=== PATIENT | male | born 1960 | race Caucasian/White ===

== ENCOUNTER → 2016-11-18 | Outpatient (CLI) | payer BC ==
--- NOTE | 2016-11-18 08:50 | MR ---
EXAMINATION TYPE: MR brain and iac wo/w con DATE OF EXAM: 11/18/2016 8:37 AM COMPARISON: 10/06/2014 HISTORY: Hearing loss,Postop acoustic neuroma check. TECHNIQUE: Multiplanar and multispin-echo imaging of the brain was performed both before and after the administr ation of contrast. High-resolution images are obtained of the internal auditory canals performed uti lizing 18 mL intravenous MultiHance contrast. The ventricles, basal cisterns and sulci overlying the cerebral convexities are within normal limits. There is no evidence for midline shift or mass effect. Acute intracranial hemorrhage or extra-axial collection is not evident. There is mild periventricular white matter ischemic demyelination and scattered remote deep white mat ter insults. Changes of left-sided mastoidectomy with a temporal bone packing with fat. Again noted is minimal enh ancement along the intracanicular portion of the internal auditory canal on the left which is stable and believed to BE postoperative in nature. No evidence for residual or recurrent acoustic schwannoma . High-resolution imaging of the internal auditory canals fails demonstrate evidence for an enhancing a coustic schwannoma or cerebellopontine cistern angle mass. Following contrast administration, there is no evidence for enhancing mass. Changes of chronic maxillary and ethmoidal sinusitis. Right-sided mastoid air cells are well-aerated. IMPRESSION: 1. Stable postoperative changes left temporal bone. Persistent mild enhancement within the intracanic ular portion of the left Internal auditory canal felt to be postoperative in nature. No definite enha ncing acoustic schwannoma. 2. 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 3. Chronic sinusitis.
== END | disposition home or self-care (01) ==
LOC: RADMRIMAIN 07:38
PROVIDERS: ATTEND Otolaryngology
DX: R93.0 Abnormal findings on diagnostic imaging of skull and head, not elsewhere classified (principal); D33.3 Benign neoplasm of cranial nerves; Z86.73 Personal history of transient ischemic attack (TIA), and cerebral infarction without residual deficits; Z98.890 Other specified postprocedural states
CPT/HCPCS: 70553; A9577

== ENCOUNTER → 2017-10-15 | Outpatient (CLI) | payer OTHER ==
--- NOTE | 2017-10-15 14:28 | XR ---
EXAMINATION TYPE: XR chest 2V DATE OF EXAM: 10/15/2017 COMPARISON: NONE HISTORY: Cough and congestion, acute upper respiratory infection, J06.9 TECHNIQUE: Frontal and lateral views of the chest are obtained. FINDINGS: There is no focal air space opacity, pleural effusion, or pneumothorax seen. The cardiac silhouette size is within normal limits. There is a spinal curvature present. The osseous structures are intact. IMPRESSION: No acute cardiopulmonary process.
== END | disposition home or self-care (01) ==
LOC: RADXRMAIN 12:14
PROVIDERS: ATTEND Internal Medicine
DX: J06.9 Acute upper respiratory infection, unspecified (principal)
CPT/HCPCS: 71046

== ENCOUNTER → 2017-10-26 | Outpatient (CLI) | payer OTHER ==
--- NOTE | 2017-10-26 09:16 | XR ---
EXAM TYPE: LUMBAR SPINE X RAY SERIES COMPARISON: NONE HISTORY: Low back pain TECHNIQUE: 4 views are submitted. FINDINGS: Alignment is anatomic. The pedicles are intact. The transverse processes are intact. There is no s pondylolysis or spondylolisthesis. Severe degenerative disc disease L5-S1 with posterior spondylosis and probable foraminal encroachment. IMPRESSION: 1. Severe degenerative disc disease L5-S1 consider MRI follow-up.
== END | disposition home or self-care (01) ==
LOC: RADXRMAIN 08:44
PROVIDERS: ATTEND Internal Medicine
DX: M51.37 Other intervertebral disc degeneration, lumbosacral region (principal)
CPT/HCPCS: 72100

== ENCOUNTER → 2017-11-13 | Outpatient (CLI) | payer OTHER ==
--- NOTE | 2017-11-13 15:22 | MR ---
EXAMINATION TYPE: MR lumbar spine wo con DATE OF EXAM: 11/13/2017 COMPARISON: Lumbar spine x-ray October 26, 2017 HISTORY: Spondylosis and Radiculopathy per order. Pain into right lower extremity for 3 weeks per pat ient. TECHNIQUE: Multiplanar, multisequence imaging of the lumbar spine is performed without IV contrast. FINDINGS: Sagittal images of the lumbar spine show vertebral body heights and alignment to appear sat isfactory. Multilevel disc desiccation is present. There is moderate disc space narrowing L5-S1 level redemonstrated. Small posterior disc herniation L4-L5 and L5-S1 levels are seen on sagittal images. Increased signal posteriorly consistent with annular tear is noted L5-S1 level. There is heterogeneou s increased T1 and T2 signal consistent with Modic type II degenerative change at the L5-S1 level. Th e conus medullaris is normal in position and signal ending at superior L1 level. Tarlov cysts in the upper sacrum are noted sagittal image 7. Axial images show the T12-L1 and L1-L2 levels to appear within normal limits. Axial images at L2-L3 level show mild broad disc bulge with left foraminal disc protrusion component minimally effacing anterior thecal sac. There is mild left-sided anterior inferior neural foraminal n arrowing seen. Right-sided neural foramen is patent. Axial images at L3-L4 level are felt within normal limits. Axial images at L4-L5 level show broad-based right paracentral disc protrusion effacing anterolateral thecal sac, bilateral neural foramina are patent. Axial images at L5-S1 level shows central disc protrusion minimally effacing anterior thecal sac, fiona ateral neural foramina are patent. There is heterogeneity of bone marrow signal intensity felt to reflect red marrow reconversion extend ing into the visualized upper sacrum. There are some simple appearing cysts seen bilaterally in both kidneys with partial visualization of 4.3 cm exophytic cyst anteriorly mid pole level left kidney axi al image 38 noted. IMPRESSION: Straightening of lumbar spine with multilevel degenerative changes in lumbar spine noted as detailed above.
== END | disposition home or self-care (01) ==
LOC: RADMRIMAIN 14:37
PROVIDERS: ATTEND Physical Medicine & Rehabilitation
DX: M47.26 Other spondylosis with radiculopathy, lumbar region (principal)
CPT/HCPCS: 72148

== ENCOUNTER → 2020-07-06 | Outpatient (CLI) | payer OTHER ==
--- NOTE | 2020-07-06 07:59 | MR ---
EXAMINATION TYPE: MR brain and iac wo/w con DATE OF EXAM: 07/06/2020 COMPARISON: Prior MRI brain November 18, 2016. CT brain September 02, 2014 HISTORY: Acoustic Neuroma Post OP x 6 years TECHNIQUE: Multiplanar, multisequence images of the brain and brainstem along with internal auditory canals are all performed without and with IV contrast, utilizing 9 mL intravenous Gadavist . FINDINGS: Diffusion weighted images demonstrate no evidence of a recent infarct or other diffusion ab normality. There is no worrisome new extra-axial fluid collection. Diffuse ventricular and sulcal pr ominence. Scattered foci of T2 hyperintensity seen throughout the white matter bilaterally with inter anel progression from 2017 study. I estimate roughly 15-20 scattered lesions on current study approxim ately doubled from prior. Midline structures demonstrate normal morphology. The craniocervical junction appears within normal limits. Post contrast images demonstrate no abnormal enhancement. The dural venous sinuses appear pa tent. Persistent mild to moderate mucosal thickening involving ethmoid sinuses bilaterally left great er than right and mild mucosal thickening involving bilateral frontal sinuses otherwise paranasal sin uses are clear. Globes are intact bilaterally. Postsurgical changes left temporal region redemonstrated. Stable T2 hyperintense packing material. Th e vestibulocochlear complexes are symmetric and felt within normal limits. There is no suspicious new enhancing cerebellopontine angle mass identified bilaterally. Asymmetric material of T1 hyperintensi ty redemonstrated at the level of petrous apex posterior to the vestibulocochlear complex and extendi ng superiorly and inferiorly. No significant change from prior study. IMPRESSION: 1. No suspicious new fluid collection or enhancing mass. Stable post surgical changes. 2. Persistent mild diffuse cerebral atrophy and now mild to moderate chronic small vessel ischemic ch anges. Some interval progression in the latter from 2017 study noted. 3. Stable mild chronic paranasal sinus disease.
== END | disposition home or self-care (01) ==
LOC: RADMRIMAIN 06:47
PROVIDERS: ATTEND Otolaryngology
DX: I67.82 Cerebral ischemia (principal); G31.9 Degenerative disease of nervous system, unspecified; D33.3 Benign neoplasm of cranial nerves
CPT/HCPCS: 70553; A9585

== ENCOUNTER → 2021-03-18 | Outpatient (CLI) | payer BC ==
--- NOTE | 2021-03-18 13:24 | XR ---
EXAMINATION TYPE: XR chest 2V DATE OF EXAM: 03/18/2021 COMPARISON: Chest x-ray 10/15/2017 HISTORY: R07.89 atypical chest pain TECHNIQUE: Frontal and lateral views of the chest are obtained. FINDINGS: There is no focal air space opacity, pleural effusion, or pneumothorax seen. The cardiac silhouette size is within normal limits. The osseous structures are intact. IMPRESSION: No acute cardiopulmonary process.
== END | disposition home or self-care (01) ==
LOC: RADXRMAIN 12:38
PROVIDERS: ATTEND Internal Medicine
DX: R07.89 Other chest pain (principal)
CPT/HCPCS: 71046

== ENCOUNTER → 2021-04-10 | Outpatient (CLI) | payer BC ==
--- NOTE | 2021-04-10 12:17 | ECHOS ---
STRESS ECHOCARDIOGRAM DATE OF SERVICE: April 10, 2021. PERFORMING PHYSICIAN: Chaz Durant MD. PROCEDURE PERFORMED: Stress echocardiogram. INDICATION: Chest pain. BASELINE HEART RATE: 73 BASELINE BLOOD PRESSURE: 124/95 MAXIMUM HEART RATE: 158 MAXIMUM BLOOD PRESSURE: 211/50 85% MPHR: 136 100% MPHR: 160 METS: 11.5 MAXIMUM STAGE REACHED: 4 TOTAL EXERCISE TIME: 10:00 STRESS DATA: Heart rate is 73, pressure is 124/95 mmHg. Baseline EKG showed sinus mechanism. The patient exercised on the treadmill according to Fadi protocol for a total of 10 minutes and achieved 11.5 METs. Max heart rate was 158 which is about 99% of maximum predicted heart rate and maximum blood pressure was 203/66 mmHg. Clinically, the patient did not have any symptoms. The EKG did not show any significant ST or T-wave abnormalities concerning for ischemia. ECHOCARDIOGRAM IMAGES: On echocardiogram images from parasternal long axis view, parasternal short axis view, apical long axis, and apical short axis view were obtained as the baseline images, at the peak of the heart rate as well as on recovery. The echocardiogram images showed good augmentation in the left ventricular systolic function without any evidence of wall motion abnormalities concerning for ischemia. CONCLUSION: 1. Excellent exercise tolerance. 2. Normal EKG in response to exercise. 3. Normal echocardiogram in response to exercise. 4. Essentially normal stress echocardiogram. MMODL / IJN: [id number] /
== END | disposition home or self-care (01) ==
LOC: RADNMMAIN 08:59
PROVIDERS: ATTEND Internal Medicine
DX: R07.89 Other chest pain (principal)
CPT/HCPCS: 93351

== ENCOUNTER 2022-03-06 08:08 | Inpatient (IN) | payer BC ==
[2022-03-06] MEDS ORDERED: HEPARIN SOD,PORK IN 0.45% NACL 25,000 UNIT in 0.45% NACL 1 250ML.BAG IV SCH (08:15)
[2022-03-06] MEDS ORDERED: SODIUM CHLORIDE 0.9% 1,000 ML IV STA (08:15)
[2022-03-06] MEDS ORDERED: HEPARIN SODIUM 1,000 UN/ML (10ML VL) IV ONE ×2 (08:15→08:41)
--- NOTE | 2022-03-06 08:20 | ED ---
Chest Pain HPI - General Chief Complaint: Chest Pain Stated Complaint: Stemi Source: patient, EMS Mode of arrival: EMS - History of Present Illness Initial Comments: 61-year-old male with past medical history of anxiety and high cholesterol presents to the emergency department with chest pain. Chest pain started yesterday however resolved. Today the pain came back and was described as a pressure sensation, substernal without radiation. Associated nausea with diaphoresis. EMS arrived on scene and found the patient to have ST segment elevation. He has no previous cardiac history. Denies ripping or tearing sensation to his back. No recent fevers, chills or cough. Patient was given 324 mg chewable aspirin and 3 nitros en route to the hospital. No other alleviating, precipitating or modifying factors - Related Data Home Medications Medication Instructions Recorded Confirmed FLUoxetine HCL [PROzac] 20 mg PO DAILY 09/02/14 09/02/14 Previous Rx's Medication Instructions Recorded Ondansetron Odt [Zofran Odt] 4 mg PO Q8HR PRN #10 tab 09/02/14 Potassium Chloride ER [K-Dur 20] 20 meq PO DAILY #20 tab 09/02/14 Allergies Allergy/AdvReac Type Severity Reaction Status Date / Time No Known Allergies Allergy Verified 06/08/21 14:09 Review of Systems ROS Statement: Those systems with pertinent positive or pertinent negative responses have been documented in the HPI. ROS Other: All systems not noted in ROS Statement are negative. EKG Findings - EKG Comments: EKG Findings:: EKG demonstrates sinus rhythm with a rate of 69. ST segment elevation in V1 through V6. Reciprocal depression in the inferior leads Past Medical History Additional Past Medical History / Comment(s): benign brain tumor History of Any Multi-Drug Resistant Organisms: None Reported Additional Past Surgical History / Comment(s): brain tumor removal Past Psychological History: Anxiety, Depression Smoking Status: Never smoker Past Alcohol Use History: Occasional Past Drug Use History: None Reported, Marijuana Course Vital Signs 03/06/22 08:10 Pulse Rate 69 Respiratory 18 Rate Blood Pressure 107/87 O2 Sat by Pulse 95 Oximetry Procedures - [place] Protocol (Time Out) Patient Identification (2 identifiers required): Chart, Verbal, Arm Band, Name, Birthdate Patient/Legal [employer] has Confirmed: Identity, Procedure Site Marked: Not Applicable Chest Pain MDM - MDM Upon arrival patient was placed into trauma 1. History and physical exam was performed. 12-lead EKG was obtained which continues to demonstrate ST segment elevation. Patient given a heparin bolus. Labs are obtained and patient is taken to [facility] 1 for catheterization. Spoke with Dr. Durant as patient was wheeled upstairs. Disposition Clinical Impression: Chest pain, ST elevation myocardial infarction (STEMI) Disposition: ADMITTED IP TO THIS HOSP Condition: Serious Is patient prescribed a controlled substance at d/c from ED?: No Referrals: Derick Remy MD [Primary Care Provider] - 1-2 days Time of Disposition: 08:24 Decision to Admit Reason: Admit from EC Decision Date: 03/06/22 Decision Time: 08:24
[2022-03-06] MEDS ORDERED: NALOXONE 0.4 MG/ML 1 ML VIAL IV PRN (08:24)
[2022-03-06 08:30] LABS: Basophils # (A) 0.1 k/uL (0-0.2); Basophils % (A) 1 %; Eosinophils # (A) 0.2 k/uL (0-0.7); Eosinophils % (A) 4 %; HGB 14.2 gm/dL (13.0-17.5); Lymphocytes # (A) 2.8 k/uL (1.0-4.8); Lymphocytes % (A) 45 %; MCH 30.4 pg (25.0-35.0); MCHC 33.1 g/dL (31.0-37.0); Mean Platelet Volume 7.5; Monocytes # (A) 0.4 k/uL (0-1.0); Monocytes % (A) 7 %; Neutrophils # (A) 2.4 k/uL (1.3-7.7); Neutrophils % (A) 39 %; Platelet Count 194 k/uL (150-450); RBC 4.67 m/uL (4.30-5.90); WBC 6.3 k/uL (3.8-10.6)
[2022-03-06] MEDS ORDERED: HEPARIN SODIUM 1,000 UN/ML (10ML VL) ONE (08:34)
[2022-03-06] MEDS ORDERED: LIDOCAINE 1% INJ 10MG/ML (30 ML VIAL-PF) SQ ONE (08:35)
[2022-03-06] MEDS ORDERED: MIDAZOLAM 2 MG/2 ML VIAL IV ONE (08:37)
[2022-03-06] MEDS ORDERED: VERAPAMIL SYRINGE (5 MG/10 ML) INTRAARTER ONE (08:37)
[2022-03-06 08:40] LABS: ALT 32 U/L (4-49); AST 47 U/L (17-59); African American GFR (CKD) >90 (>60 ml/min/1.73 sqM); Albumin 4.4 g/dL (3.5-5.0); Alkaline Phosphatase 69 U/L (38-126); Anion Gap 12 mmol/L; Blood Urea Nitrogen 13 mg/dL (9-20); Carbon Dioxide 19 mmol/L (22-30); Chloride 106 mmol/L (98-107); Glucose 167 mg/dL (74-99); Non-African American GFR(CKD) 90 (>60 ml/min/1.73 sqM); Potassium 4.3 mmol/L (3.5-5.1); Sodium 137 mmol/L (137-145); Total Bilirubin 0.5 mg/dL (0.2-1.3); Total Protein 6.9 g/dL (6.3-8.2)
[2022-03-06] MEDS ORDERED: PRASUGREL 10 MG TAB ONE (08:48)
[2022-03-06 08:49] LABS: Prothrombin Time 10.6 sec (9.0-12.0)
[2022-03-06] MEDS ORDERED: PRASUGREL 10 MG TAB PO ONE (08:50)
[2022-03-06] MEDS ORDERED: IOPAMIDOL-370 125ML BTL INJ ONE (09:03)
[2022-03-06] MEDS ORDERED: MAG HYDROX/AL HYDROX/SIMETH 30 ML CUP PO PRN (09:13)
[2022-03-06] MEDS ORDERED: ZOLPIDEM 5 MG TAB PO PRN (09:13)
[2022-03-06] MEDS ORDERED: RX INFO: IV CONTRAST WAS GIVEN 1 EACH MISC MISCELLANE PRN (09:13)
[2022-03-06] MEDS ORDERED: ATROPINE SULFATE 0.1 MG/ML 10ML SYRINGE IV PRN (09:13)
[2022-03-06] MEDS ORDERED: NITROGLYCERIN SL TABS 0.4 MG TAB SUBLINGUAL PRN (09:13)
[2022-03-06] MEDS ORDERED: SODIUM CHLORIDE 0.9% 1,000 ML in EMPTY BAG 1 BAG IV SCH (09:15)
--- NOTE | 2022-03-06 09:19 | P.CRDCN ---
History of Present Illness Consult date: 03/06/22 Chief complaint: Chest pain History of present illness: This is a 61-year-old gentleman with a past medical history significant for dyslipidemia was brought to the hospital by ambulance with a chest discomfort and EKG concerning for acute anterior ST patient myocardial infarction. He was doing shopping this morning when he started experiencing discomfort in the middle of the chest as a pressure on the chest. Ambulance was called and EKG wa s performed and showed an acute anterior ST patient myocardial infarction. 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 The patient is chest pain-free with significant improvement in the EKG changes by the end of the procedure. He does have history of dyslipidemia. No hypertension. No other risk factor for CAD like diabetes. Past Medical History Additional Past Medical History / Comment(s): benign brain tumor History of Any Multi-Drug Resistant Organisms: None Reported Additional Past Surgical History / Comment(s): brain tumor removal Past Psychological History: Anxiety, Depression Smoking Status: Never smoker Past Alcohol Use History: Occasional Past Drug Use History: None Reported, Marijuana Medications and Allergies Home Medications Medication Instructions Recorded Confirmed Type FLUoxetine HCL [PROzac] 20 mg PO DAILY 09/02/14 09/02/14 History Ondansetron Odt [Zofran Odt] 4 mg PO Q8HR PRN #10 tab 09/02/14 Rx Potassium Chloride ER [K-Dur 20] 20 meq PO DAILY #20 tab 09/02/14 Rx Allergies Allergy/AdvReac Type Severity Reaction Status Date / Time No Known Allergies Allergy Verified 06/08/21 14:09 Physical Exam Vitals: Vital Signs Pulse Resp BP Pulse Ox 03/06/22 08:58 68 18 124/81 96 03/06/22 08:10 69 18 107/87 95 Intake and Output 03/05/22 03/06/22 03/06/22 22:59 06:59 14:59 Other: Weight 84.822 kg - Constitutional General appearance: no acute distress - Respiratory Respiratory: bilateral: CTA - Cardiovascular Rhythm: regular Heart sounds: normal: S1, S2 Abnormal Heart Sounds: systolic murmur Results 03/06/22 08:00 03/06/22 08:00 Cardiac Enzymes 03/06/22 03/06/22 Range/Units 08:00 08:00 AST 47 (17-59) U/L Troponin I 0.341 H* (0.000-0.034) ng/mL Coagulation 03/06/22 Range/Units 08:00 PT 10.6 (9.0-12.0) sec APTT 21.0 L (22.0-30.0) sec CBC 03/06/22 Range/Units 08:00 WBC 6.3 (3.8-10.6) k/uL RBC 4.67 (4.30-5.90) m/uL Hgb 14.2 (13.0-17.5) gm/dL Hct 43.0 (39.0-53.0) % Plt Count 194 (150-450) k/uL Comprehensive Metabolic Panel 03/06/22 Range/Units 08:00 Sodium 137 (137-145) mmol/L Potassium 4.3 (3.5-5.1) mmol/L Chloride 106 (98-107) mmol/L Carbon Dioxide 19 L (22-30) mmol/L BUN 13 (9-20) mg/dL Creatinine 0.92 (0.66-1.25) mg/dL Glucose 167 H (74-99) mg/dL Calcium 9.0 (8.4-10.2) mg/dL AST 47 (17-59) U/L ALT 32 (4-49) U/L Alkaline Phosphatase 69 (38-126) U/L Total Protein 6.9 (6.3-8.2) g/dL Albumin 4.4 (3.5-5.0) g/dL Current Medications Generic Name Dose Route Start Last Admin Trade Name Freq PRN Reason Stop Dose Admin Al Hydroxide/Mg Hydroxide 30 ml 03/06/22 09:13 Mag Hydrox/Al Hydrox/Simeth 30 Ml Cup PO Q4HR PRN Heartburn Aspirin 81 mg 03/07/22 09:00 Aspirin 81 Mg PO DAILY TYRELL Atorvastatin Calcium 80 mg 03/06/22 21:00 Atorvastatin 80 Mg Tab PO HS TYRELL Atropine Sulfate 0.5 mg 03/06/22 09:13 Atropine Sulfate 0.1 Mg/Ml 10ml Syringe IV ONCE PRN Symptomatic Bradycardia Heparin Sodium/Sodium Chloride 250 mls @ 10.001 mls/hr 03/06/22 08:15 25,000 unit/ Sodium Chloride IV .Q24H [facility] Protocol 11.79 UNITS/KG/HR Sodium Chloride 1,000 ml/ IV 1,000 mls @ 75 mls/hr 03/06/22 09:15 Solution IV 03/06/22 14:16 .[id number] [facility] Miscellaneous Information 1 each 03/06/22 09:13 Rx Info: Iv Contrast Was Given 1 Each Mis MISCELLANE 03/08/22 09:13 DAILY PRN Per Protocol Naloxone HCl 0.2 mg 03/06/22 08:24 Naloxone 0.4 Mg/Ml 1 Ml Vial IV Q2M PRN Opioid Reversal Nitroglycerin 0.4 mg 03/06/22 09:13 Nitroglycerin Sl Tabs 0.4 Mg Tab SUBLINGUAL Q5M PRN Chest Pain Prasugrel 10 mg 03/07/22 09:00 Prasugrel 10 Mg Tab PO DAILY [facility] Protocol Zolpidem Tartrate 5 mg 03/06/22 09:13 Zolpidem 5 Mg Tab PO HS PRN Insomnia Intake and Output 03/05/22 03/06/22 03/06/22 22:59 06:59 14:59 Other: Weight 84.822 kg Patient Weight 03/07/22 06:59 Weight 84.822 kg 03/06/22 08:00 03/06/22 08:00 Assessment and Plan Assessment: Assessment #[address] patient myocardial infarction #2 dyslipidemia Plan #1 the patient is status post a stenting of the LAD #2 obtain an echo to evaluate the LV function #3 dual antiplatelet therapy #4 follow-up with the patient
--- NOTE | 2022-03-06 09:23 | P.PCN ---
Date of Procedure: 03/06/22 Operative Findings: CARDIAC CATHETERIZATION AND PERCUTANEOUS CORONARY INTERVENTION PERFORMING PHYSICIAN: Chaz Durant MD, [facility] PROCEDURE PERFORMED: 1. Selective right and left coronary angiogram 2. Left heart catheterization 3. Successful stenting of proximal LAD using 4.0 x 23 and 4.0 x 12 Xience KATHRINE which with an excellent angiographic results 4. Aspiration thrombectomy from the left anterior descending artery INDICATION: Acute anterior ST patient myocardial infarction COMPLICATION: None APPROACH: Right radial approach LEVEL OF SEDATION: Moderate with the sedation time off 20 minutes PROCEDURE DESCRIPTION: After obtaining informed consent the patient was brought to the cardiac vp lab. The right radial artery was cannulated using micropuncture technique, the micropuncture wire passed easily then I placed a 6-[place] sheath. Subsequently given 2 mg of verapamil IA. Subsequently did selective right and left coronary angiogram using JR4 and JL 3.5 catheters. After that I did intervene on the LAD. At that did left heart catheterization. The procedure was completed without any complications SELECTIVE CORONARY ANGIOGRAM: The right coronary artery: Large caliber vessel and a dominant vessel. The RCA has mild disease in the proximal portion. Distally bifurcates into PDA and PLV branches both appeared to be angiographically normal. Left main: Is angiographically normal. Bifurcates into LCx and LAD The left circumflex: Is a large caliber vessel. Its and on dominant vessel. The LCx is angiographically normal. Gives rises into multiple OM branches appears to be angiographically normal the first OM branch is a large caliber vessel work as a ramus intermedius. The left anterior descending artery: Is occluded in the proximal portion. The LAD is a large caliber vessel. HEMODYNAMICS: The LVEDP was 15 mmHg was no significant gradient across aortic valve PCI OF THE LAD: Anticoagulation was initiated using heparin with continuous ECG monitoring throughout the procedure date subsequently admitted engage the left main using a JL 3.5 guiding catheter B that is where the LAD using a run-through wire. This patient from [place] from the LAD was performed using an export catheter. There was a small white clot noted. After that I did direct stenting of the LAD using 4.0 x 23 mm stent where the stent was positioned under fluoroscopy guidance and deployed under 14 theresa for 20 seconds. The following angiogram showed a haziness distal to the stented segment. Because of that I decided to cover that the stent so I deployed a 40 by 12 mm another stent where the second stent was overlapped with persistent about 2 mm. The second stent was deployed under 12 theresa for 20 seconds. The area of overlap was dilated using the stent balloon which was inflated under 14 theresa for 20 seconds. The final angiogram showed good angiographic results and the procedure was completed without any complications CONCLUSION: Acute anterior ST elevation myocardial infarction Acute total occlusion of the LAD. I did perform successful stenting of the LAD with a good angiographic results Normal left-sided filling pressure POSTPROCEDURE MANAGEMENT: #1 dual antiplatelet therapy using aspirin and Effient for 12 month #2 aggressive cholesterol control #3 follow-up with the patient
[2022-03-06 09:40] LABS: Glucose,Whole Blood 145 mg/dL (70-110)
[2022-03-06] MEDS ORDERED: diazePAM 2 MG TAB PO PRN (12:52)
--- NOTE | 2022-03-06 13:45 | P.HPIM ---
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 He was noted to have ST segment elevations on EKG. 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 He was started on ASA, effient, and lipitor. He has been admitted to the ICU. Patient seen and examined at bedside with present. Chest pain yesterday with nausea and pain in arms when sitting and watching TV lasted about 45 minutes. This morning work up at 6 am about 6:45 Chest pressure in the center, elbow, wrist, and back of neck hurting, nausea with dry heaves, + SOB, + diaphoresis. Yesterday weed wacked harder than normal. No hx of heart disease. Hx of syncope due to low blood pressure. Dad- [place] at age of 57. Brother- heart attack under the age of 60 Pertinent positives and negatives as discussed in HPI, a complete review of systems was performed and all other systems are negative. Vital signs reviewed General: nontoxic, no distress, appears at stated age Derm: warm, dry Head: atraumatic, normocephalic, symmetric, cochlear implant right Eyes: EOMI, no lid lag, anicteric sclera, pupils equal round reactive to light ENT: Nose and ears atraumatic, no thrush, no pharyngeal erythema Neck: No thyromegaly, no cervical lymphadenopathy, trachea midline, supple Mouth: no lip lesion, mucus membranes moist Cardiovascular: S1S2 reg, no murmur, positive posterior tibial pulse bilateral, no edema, capillary refill less than 2 seconds Lungs: clear to auscultation bilateral, no rhonchi, no rales, no wheeze, no accessory muscle use Abdominal: soft, nontender to palpation, no guarding, no appreciable organomegaly, normal bowel sounds Ext: no gross muscle atrophy, muscle strength muscle strength 5 out of 5 in all 4 extremities, no contractures Neuro: CN II-XII grossly intact, light touch intact all 4 extremities, finger to nose within normal limits, Psych: Alert, oriented, appropriate affect Assessment/Plan: Acute anterior STEMI Hx hypotension - ASA, Effient, statin - Await echo - Cardio recs - tele - check lipid profile and A1C Hyperlipidemia - statin, lipid profile Hearing loss The patient is admitted with an anticipated greater than 2 midnight stay for evaluation of STEMI. Surrogate decision-maker: CODE STATUS:full DVT prophylaxis: SCDs Discussed with: patient, nursing Anticipated discharge date: in 2-[address]: home A total of 35 minutes was spent on the care of this complex patient more than 50% of the time was spent in counseling and care coordination. Past Medical History Past Medical History: Hyperlipidemia Additional Past Medical History / Comment(s): Acustic neuroma, sudden hearing loss, Raynauds, Anxiety/depression History of Any Multi-Drug Resistant Organisms: None Reported Additional Past Surgical History / Comment(s): brain tumor removal, Cocholar imptant Smoking Status: Never smoker Past Alcohol Use History: None Reported Past Drug Use History: Marijuana - Past Family History Brother(s) Family Medical History: Myocardial Infarction ([place]) Father Family Medical History: Myocardial Infarction ([place]) Medications and Allergies Home Medications Medication Instructions Recorded Confirmed Type Escitalopram [Lexapro] 10 mg PO DAILY 03/06/22 03/06/22 History diazePAM [Valium] 2 mg PO Q8H PRN 03/06/22 03/06/22 History Allergies Allergy/AdvReac Type Severity Reaction Status Date / Time No Known Allergies Allergy Verified 03/06/22 10:55 Physical Exam Osteopathic Statement: *. No significant issues noted on an osteopathic structural exam other than those noted in the History and Physical/Consult. Vitals: Vital Signs Temp Pulse Resp BP Pulse Ox 03/06/22 12:30 74 10 L 141/78 100 03/06/22 12:00 97.8 F 61 11 L 116/79 98 03/06/22 11:30 54 L 102/68 99 03/06/22 11:00 55 L 13 104/73 100 03/06/22 10:45 53 L 10 L 103/66 99 03/06/22 10:30 60 10 L 103/65 98 03/06/22 10:15 57 L 12 102/65 100 03/06/22 10:00 51 L 11 L 99/70 97 03/06/22 09:45 52 L 12 99/70 98 03/06/22 09:40 97.8 F 51 L 10 L 99/70 99 03/06/22 09:37 50 L 10 L 06/23/22 08:58 68 18 124/81 96 03/06/22 08:10 69 18 107/87 95 Intake and Output 03/05/22 03/06/22 03/06/22 22:59 06:59 14:59 Intake Total 420 Balance 420 Intake: IV 300 Sodium Chloride 0.9% 1, 300 000 ml In Empty Bag 1 bag @ 75 mls/hr IV .[id number] Rx#:[id number] Oral 120 Other: Weight 84.822 kg Results CBC & Chem 7: 03/06/22 08:00 03/06/22 08:00 Labs: Abnormal Lab Results - Last 24 Hours (Table) 03/06/22 03/06/22 03/06/22 Range/Units 08:00 08:00 08:00 APTT 21.0 L (22.0-30.0) sec Carbon Dioxide 19 L (22-30) mmol/L Glucose 167 H (74-99) mg/dL POC Glucose (mg/dL) (70-110) mg/dL Troponin I 0.341 H* (0.000-0.034) ng/mL 03/06/22 Range/Units 09:39 APTT (22.0-30.0) sec Carbon Dioxide (22-30) mmol/L Glucose (74-99) mg/dL POC Glucose (mg/dL) 145 H (70-110) mg/dL Troponin I (0.000-0.034) ng/mL Thrombosis Risk Factor Assmnt - Choose All That Apply Each Factor Represents 1 point: Acute [place], Medical pt on bed rest Each Risk Factor Represents 2 Points: Age 61-74 years, Central venous access, Patient confined to bed Other congenital or acquired thrombophilia - If yes, enter type in comment: No Thrombosis Risk Factor Assessment Total Risk Factor Score: 8 Thrombosis Risk Factor Assessment Level: High Risk
[2022-03-06] MEDS: ESCITALOPRAM 10 MG TAB PO SCH (14:54)
[2022-03-06] MEDS: ATORVASTATIN 80 MG TAB PO SCH (19:48)
[2022-03-07] MEDS: METOPROLOL TARTRATE 25 MG TAB PO SCH ×3 (00:24→20:24)
[2022-03-07 06:30] LABS: African American GFR (CKD) >90 (>60 ml/min/1.73 sqM); Anion Gap 6 mmol/L; Blood Urea Nitrogen 13 mg/dL (9-20); Calcium 8.6 mg/dL (8.4-10.2); Carbon Dioxide 27 mmol/L (22-30); Chloride 106 mmol/L (98-107); Glucose 108 mg/dL (74-99); Non-African American GFR(CKD) 89 (>60 ml/min/1.73 sqM); Potassium 4.5 mmol/L (3.5-5.1); Sodium 139 mmol/L (137-145)
--- NOTE | 2022-03-07 08:18 | P.PN ---
Subjective Progress Note Date: 03/07/22 Principal diagnosis: Acute coronary syndrome This is a 61-year-old gentleman who was brought to the hospital with a chest discomfort and EKG concerning for acute anterior ST patient myocardial infarction. He underwent an emergent heart catheterization and was found to have occluded LAD. He underwent successful stenting of the LAD with an excellent angiographic results. The patient was seen this morning. He is doing well clinically. He is stable hemodynamically as well as mid he has been maintaining normal sinus mechanism. The echo is not back yet. He is on dual antiplatelet therapy as well as high intensity statin. From a cardiovascular standpoint of view, the patient can be transferred to the third floor for possible discharge in the next 24 hours Objective - Vital Signs Vital signs: Vital Signs Temp 98.1 F 03/07/22 03:59 Pulse 51 L 03/07/22 07:00 Resp 15 03/07/22 07:00 BP 121/85 03/07/22 07:00 Pulse Ox 96 03/07/22 07:00 FiO2 Intake & Output 03/06/22 03/07/22 03/07/22 18:59 06:59 18:59 Intake Total 1120 525 Output Total 0 0 Balance 1120 525 Weight 84.822 kg 84.1 kg Intake: IV 750 525 Sodium Chloride 0.9% 1, 750 525 000 ml In Empty Bag 1 bag @ 75 mls/hr IV .[id number] [facility] Rx#:[id number] Oral 370 Output: Urine 0 0 Other: Voiding Method Toilet Toilet # Voids 1 1 - Constitutional General appearance: Present: no acute distress - Respiratory Respiratory: bilateral: CTA - Cardiovascular Rhythm: regular Heart sounds: normal: S1, S2 - Labs CBC & Chem 7: 03/06/22 08:00 03/07/22 05:46 Labs: Abnormal Lab Results - Last 24 Hours (Table) 03/06/22 03/06/22 03/06/22 Range/Units 08:00 08:00 08:00 APTT 21.0 L (22.0-30.0) sec Carbon Dioxide 19 L (22-30) mmol/L Glucose 167 H (74-99) mg/dL POC Glucose (mg/dL) (70-110) mg/dL Troponin I 0.341 H* (0.000-0.034) ng/mL 03/06/22 03/07/22 Range/Units 09:39 05:46 APTT (22.0-30.0) sec Carbon Dioxide (22-30) mmol/L Glucose 108 H (74-99) mg/dL POC Glucose (mg/dL) 145 H (70-110) mg/dL Troponin I (0.000-0.034) ng/mL Assessment and Plan Assessment: Assessment #[address] patient myocardial infarction #2 dyslipidemia Plan #1 the patient is status post a stenting of the LAD #2 obtain an echo to evaluate the LV function #3 dual antiplatelet therapy #4 follow-up with the patient #5 the patient can be transferred to the floor #6 discharge in the next 24 hours
[2022-03-07] MEDS: ASPIRIN 81 MG PO SCH (08:37)
[2022-03-07] MEDS: PRASUGREL 10 MG TAB PO SCH (08:37)
[2022-03-07] MEDS: ESCITALOPRAM 10 MG TAB PO SCH (08:37)
[2022-03-07 09:24] LABS: Chol/HDL Ratio 5.04 Ratio; LDL Cholesterol,Calculated 131.3 mg/dL (0.0-131.0)
--- NOTE | 2022-03-07 10:11 | CA ---
Transthoracic Echo Report Name: Tae Romero Age: 61 Gender: M : 1960 Exam Date: 03/06/2022 09:39 Exam Location: [facility] Ht (in): 73 Wt (lb): 187 Ordering Physician: Chaz Durant MD ([id number]) Attending/Referring Phys: Ice Cream Machine Operator Alpa Saldana RDCS Procedure CPT: Indications: stemi Cardiac Hx: Technical Quality: Good Contrast 1: Total Dose (mL): Contrast 2: Total Dose (mL): MEASUREMENTS (Male / Female) Normal Values 2D ECHO LV Diastolic Diameter PLAX 4.0 cm 4.2 - 5.9 / 3.9 - 5.3 cm LV Systolic Diameter PLAX 2.7 cm IVS Diastolic Thickness 1.3 cm 0.6 - 1.0 / 0.6 - 0.9 cm LVPW Diastolic Thickness 1.3 cm 0.6 - 1.0 / 0.6 - 0.9 cm LV Relative Wall Thickness 0.6 RV Internal Dim ED PLAX 3.0 cm LA Systolic Diameter LX 2.7 cm 3.0 - 4.0 / 2.7 - 3.8 cm M-MODE Aortic Root Diameter MM 3.7 cm MV E Point Septal Separation 0.5 cm AV Cusp Separation MM 2.4 cm DOPPLER AV Peak Velocity 97.8 cm/s AV Peak Gradient 3.8 mmHg AI Peak Velocity 223.6 cm/s AI Peak Gradient 20.0 mmHg AI Pressure Half Time 762.0 ms MV Area PHT 3.7 cm??? Mitral E Point Velocity 63.7 cm/s Mitral A Point Velocity 53.5 cm/s Mitral E to A Ratio 1.2 MV Deceleration Time 203.3 ms MV E' Velocity 7.8 cm/s Mitral E to MV E' Ratio 8.2 TR Peak Velocity 197.0 cm/s TR Peak Gradient 15.5 mmHg Right Ventricular Systolic Press 20.2 mmHg FINDINGS Left Ventricle Left ventricular ejection fraction is estimated at 50-55 % left ventricular cavity size normal. Mild concentric left ventricular hypertrophy. Right Ventricle Normal right ventricular size and function. Right ventricular systolic pressure within normal limits. Right Atrium Normal right atrial size. Left Atrium Normal left atrial size. No evidence for an atrial septal defect. Mitral Valve Trace mitral regurgitation. Aortic Valve Trace to mild aortic regurgitation. Tricuspid Valve Trace to mild tricuspid regurgitation. Pulmonic Valve Trace pulmonic regurgitation. Pericardium Normal pericardium. No pericardial effusion. Aorta Mildly dilated aortic annulus. CONCLUSIONS Normal LV size and systolic function Normal RV size and function Previewed by: Dr. Joshua Lovell MD (Electronically Signed) Final Date: 07 March 2022 10:10
[2022-03-07 10:54] VITALS: BMI 24.4
--- NOTE | 2022-03-07 15:16 | P.PN ---
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 He was noted to have ST segment elevations on EKG. He was emergently taken to tender labor and had 2 stents to the LAD. He was started on ASA, effient, and lipitor. He was admitted to the ICU. He was started on ASA, effient, and lipitor. He developed some HTN and was started on meotprolol. Ehcoh showed preserved ejection fraction 50-55%. Patient seen and examined at bedside. He continues to have some ache in the left side of his chest but it appears to be more external and on the rib cage. He denies any nausea, vomiting, diaphoresis, shortness of breath. General: nontoxic, no distress, appears at stated age Derm: warm, dry Head: atraumatic, normocephalic, symmetric Eyes: EOMI, no lid lag, anicteric sclera Mouth: no lip lesion, mucus membranes moist Cardiovascular: S1S2 reg, no murmur, positive posterior tibial pulse bilateral, Lungs: CTA bilateral, no rhonchi, no rales , no accessory muscle use Abdominal: soft, nontender to palpation, no guarding, no appreciable organomegaly Ext: no gross muscle atrophy, no edema, no contractures Neuro: CN II-XI grossly intact, no focal neuro deficits Psych: Alert, oriented, appropriate affect Assessment/Plan: Acute anterior STEMI HTN Hx hypotension - ASA, Effient, statin - metoprolol - echo within normal - Cardio recs - tele - A1C normal - LDL 138 Hyperlipidemia - statin, lipid profile Hearing loss DVT prophylaxis: SCDs Discussed with: patient, nursing Anticipated discharge: in AM Anticipated discharge place: home A total of 45 minutes was spent on the care of this complex patient more than 50% of the time was spent in counseling and care coordination. Objective - Vital Signs Vital signs: Vital Signs Temp 97.9 F 03/07/22 12:00 Pulse 52 L 03/07/22 14:00 Resp 21 03/07/22 14:00 BP 120/76 03/07/22 14:00 Pulse Ox 98 03/07/22 14:00 FiO2 Intake & Output 03/06/22 03/07/22 03/07/22 18:59 06:59 18:59 Intake Total 1120 525 Output Total 0 0 0 Balance 1120 525 0 Weight 84.822 kg 84.1 kg 84.1 kg Intake: IV 750 525 Sodium Chloride 0.9% 1, 750 525 000 ml In Empty Bag 1 bag @ 75 mls/hr IV .[id number] [facility] Rx#:[id number] Oral 370 Output: Urine 0 0 0 Other: Voiding Method Toilet Toilet Toilet # Voids 1 1 - Labs CBC & Chem 7: 03/06/22 08:00 03/07/22 05:46 Labs: Abnormal Lab Results - Last 24 Hours (Table) 03/07/22 Range/Units 05:46 Glucose 108 H (74-99) mg/dL LDL Cholesterol, Calc 131.3 H (0.0-131.0) mg/dL HDL Cholesterol 39.30 L (40.00-60.00) mg/dL
[2022-03-07 20:15] VITALS: TEMP 98
[2022-03-07] MEDS: ATORVASTATIN 80 MG TAB PO SCH (20:24)
[2022-03-08 06:19] VITALS: BP 120/75; PULSE 59; RESP 12
[2022-03-08] MEDS: METOPROLOL TARTRATE 25 MG TAB PO SCH (09:28)
[2022-03-08] MEDS: ESCITALOPRAM 10 MG TAB PO SCH (09:28)
[2022-03-08] MEDS: ASPIRIN 81 MG PO SCH (09:28)
[2022-03-08] MEDS: PRASUGREL 10 MG TAB PO SCH (09:28)
--- NOTE | 2022-03-08 12:13 | P.DS ---
Providers Date of admission: 03/06/22 08:27 Expected date of discharge: 03/08/22 Attending physician: Gisela Anand, DO Consults: 03/06/22 08:24 Consult Physician Urgent Consulting Provider: Mirta Blackburn Consult Reason/Comments: acute chest pain, stemi Do you want consulting provider notified?: Already Contacted 03/06/22 09:13 Consult Physician Routine Consulting Provider: Mirta Blackburn Consult Reason/Comments: Post Interventional Patient Do you want consulting provider notified?: Already Contacted Primary care physician: Derick Remy MD Hospital Course: Discharge Diagnosis: Acute anterior STEMI HTN, Hx hypotension Hyperlipidemia Hearing loss Hospital Course: Patient is a 61-year-old male dietary treated dyslipidemia, prior glucose intolerance, and neural hearing loss resulting in a chocolar implant 6 months ago who presented to the ER with chest discomfort. He was noted to have ST segment elevations on EKG. 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 He was started on ASA, effient, and lipitor. He was admitted to the ICU. He developed some HTN and was started on meotprolol. Echo showed preserved ejection fraction 50-55%. He continued to do well with no recurrent chest pain. He was determined stable for discharge home. Follow-up: Dr. Remy in 1 week, Dr. Durant next week, take all meds as prescribed. Make a log of blood pressure. Patient seen and examined at bedside. Feeling well. No chest pain, no shortness of breath. Vital signs reviewed and stable. General: nontoxic, no distress, appears at stated age Derm: warm, dry Head: atraumatic, normocephalic, symmetric Eyes: EOMI, no lid lag, anicteric sclera Mouth: no lip lesion, mucus membranes moist Cardiovascular: S1S2 reg, no murmur, positive posterior tibial pulse bilateral, Lungs: CTA bilateral, no rhonchi, no rales , no accessory muscle use Abdominal: soft, nontender to palpation, no guarding, no appreciable organomegaly Ext: no gross muscle atrophy, no edema, no contractures Neuro: CN II-XI grossly intact, no focal neuro deficits Psych: Alert, oriented, appropriate affect A total of 37 minutes of time were spent preparing this complex discharge summary. Patient was discharged on 03/08/22. Patient Condition at Discharge: Stable Plan - Discharge Summary Discharge Rx Participant: Yes New Discharge Prescriptions: New Aspirin 81 mg PO DAILY #30 tab Prasugrel [Effient] 10 mg PO DAILY #30 tab Atorvastatin [Lipitor] 80 mg PO HS #30 tab Metoprolol Succinate (ER) [Toprol XL] 25 mg PO DAILY #30 tab Continue diazePAM [Valium] 2 mg PO Q8H PRN PRN Reason: Anxiety Escitalopram [Lexapro] 10 mg PO DAILY Discharge Medication List Escitalopram [Lexapro] 10 mg PO DAILY 03/06/22 [History] diazePAM [Valium] 2 mg PO Q8H PRN 03/06/22 [History] Aspirin 81 mg PO DAILY #30 tab 03/08/22 [Rx] Atorvastatin [Lipitor] 80 mg PO HS #30 tab 03/08/22 [Rx] Metoprolol Succinate (ER) [Toprol XL] 25 mg PO DAILY #30 tab 03/08/22 [Rx] Prasugrel [Effient] 10 mg PO DAILY #30 tab 03/08/22 [Rx] Follow up Appointment(s)/Referral(s): Chaz Durant MD [STAFF PHYSICIAN] - 1 Week Derick Remy MD [Primary Care Provider] - 1-2 days Patient Instructions/Handouts: Heart Healthy Diet (DC), Cholesterol and Your Health (GEN) Activity/Diet/Wound Care/Special Instructions: Activity: as tolerated Diet: heart healthy (low cholesterol, no salt restriction) Special Instructions: Check blood pressure daily and make a log, call cardiology if top number less than 100 or bottom less than 65 and hold your metoprolol. Discharge Disposition: HOME SELF-CARE
--- NOTE | 2022-03-08 14:34 | P.PN ---
Subjective Progress Note Date: 03/08/22 Admitted to the hospital with the anterolateral wall myocardial infarction. He had stent placement of the LAD. Patient remained stable in the hospital. No complaints of any chest pain, shortness of breath, dizziness or syncope. Lungs are clear. Heart is regular. No JVD or peripheral edema. Patient has some atypical discomfort in the left side which is chronic. Lungs are clear. Heart is regular. No JVD. He is on aspirin and effient along with Lipitor and metoprolol. Patient is being discharged home. Follow-up with Dr. Gonzalez as an outpatient Objective - Vital Signs Vital signs: Vital Signs Temp 98.0 F 03/07/22 20:00 Pulse 59 L 03/08/22 05:00 Resp 12 03/08/22 05:00 BP 120/75 03/08/22 05:00 Pulse Ox 93 L 03/08/22 05:00 FiO2 Intake & Output 03/07/22 03/08/22 03/08/22 18:59 06:59 18:59 Output Total 200 Balance -200 Weight 84.1 kg 82.6 kg Output: Urine 200 Other: Voiding Method Toilet Toilet Toilet # Voids 1 # Bowel Movements 0 - Exam GENERAL EXAM: Patient is alert and oriented and doesn't appear to be in any acute distress HEENT: Normocephalic. Normal reaction of pupils, equal size, normal range of ext raocular motion. No erythema or exudates in the throat. NECK: No masses, no nuchal rigidity. CHEST: No chest wall deformity. LUNGS: Equal air entry with no crackles or wheeze. HEART: S1 and S2 normal with no audible mumurs or gallops. Regular rhythm, femorals equal on both sides.. ABDOMEN: No hepatosplenomegaly, normal bowel sounds, no guarding or rigidity. SKIN: No rashes CENTRAL NERVOUS SYSTEM: No focal deficits. EXTREMITIES: No cyanosis, clubbing or edema. - Labs CBC & Chem 7: 03/06/22 08:00 03/07/22 05:46 Assessment and Plan (1) ST elevation myocardial infarction (STEMI) Status: Acute Code(s): I21.3 - ST ELEVATION (STEMI) MYOCARDIAL INFARCTION OF [facility] SITE SNOMED Code(s): 19337831 (2) Dyslipidemia Status: Acute Code(s): E78.5 - HYPERLIPIDEMIA, UNSPECIFIED SNOMED Code(s): 443334815 Plan: Patient is critically stable. Being discharged home for follow-up with Dr. Gonzalez
== END 2022-03-08 13:08 | disposition home or self-care (01) | DRG 247 ==
LOC: EC 08:08 → 2SICU 08:27
PROVIDERS: ADMIT Internal Medicine; ATTEND Internal Medicine
PROC: 4A023N7 Measurement of Cardiac Sampling and Pressure, Left Heart, Percutaneous Approach (ICD-10-PCS; 2022-03-06)
PROC: B2111ZZ Fluoroscopy of Multiple Coronary Arteries using Low Osmolar Contrast (ICD-10-PCS; 2022-03-06)
PROC: 027035Z Dilation of Coronary Artery, One Artery with Two Drug-eluting Intraluminal Devices, Percutaneous Approach (ICD-10-PCS; principal; 2022-03-06 08:13)
PROC: 02C03ZZ Extirpation of Matter from Coronary Artery, One Artery, Percutaneous Approach (ICD-10-PCS; 2022-03-06 08:13)
DX: I21.09 ST elevation (STEMI) myocardial infarction involving other coronary artery of anterior wall (principal); E78.00 Pure hypercholesterolemia, unspecified; E78.5 Hyperlipidemia, unspecified; I10 Essential (primary) hypertension; I25.10 Atherosclerotic heart disease of native coronary artery without angina pectoris; I73.00 Raynaud's syndrome without gangrene; H91.20 Sudden idiopathic hearing loss, unspecified ear; I08.3 Combined rheumatic disorders of mitral, aortic and tricuspid valves; I37.1 Nonrheumatic pulmonary valve insufficiency; F41.9 Anxiety disorder, unspecified; F32.A Depression, unspecified; Z79.82 Long term (current) use of aspirin; Z79.899 Other long term (current) drug therapy; Z82.49 Family history of ischemic heart disease and other diseases of the circulatory system; Z86.011 Personal history of benign neoplasm of the brain
CPT/HCPCS: 36415; 80048; 80053; 80061; 83036; 84484; 85025; 85610; 85730; 93005; 93306; 93458

== ENCOUNTER → 2023-03-19 | Outpatient (CLI) | payer BC ==
--- NOTE | 2023-03-19 10:16 | US ---
EXAMINATION TYPE: US liver DATE OF EXAM: 03/19/2023 COMPARISON: NONE CLINICAL INDICATION: Male, 62 years old with history of R74.01ELEVATION OF LEVELS OF LIVER TRANSAMINA SE LE; elevated LFT's TECHNIQUE: Multiple sonographic images of the right upper quadrant are obtained. FINDINGS: EXAM MEASUREMENTS: Liver Length: 13.8 cm Gallbladder Wall: 0.16 cm CBD: 0.58 cm Right Kidney: 10.6x4.8x6.3 cm WRONG ADDRESS CLERK NOTES: Pancreas: partially obscured by overlying bowel gas Liver: subcentimeter cyst seen in lt. lobe Gallbladder: single non-mobile shadowing echogenic foci seen in neck Evidence for sonographic Costello's sign: No CBD: upper limits Right Kidney: extrarenal pelvis vs. small amount of hydro seen, possible ureter measured trace amount of fluid seen in pericardium, pt has hx of cardiac stent Pancreas is partially obscured by overlying bowel gas. The visualized orbits unremarkable. Liver is r elatively unremarkable with subcentimeter cyst identified within the left hepatic lobe. Cholelithiasi s demonstrated. No wall thickening or pericholecystic fluid. Per hedis review nurse, negative sonographic Mu rphy sign. Common bile duct is at the upper limits of normal. No hydronephrosis, nephrolithiasis, or solid mass involving the right kidney. Prominent extrarenal pelvis identified. IMPRESSION: 1. No acute process. 2. Cholelithiasis without evidence for acute cholecystitis. 3. Subcentimeter hepatic cyst.
== END | disposition home or self-care (01) ==
LOC: RADUSWWP 09:13
PROVIDERS: ATTEND Internal Medicine
DX: K80.20 Calculus of gallbladder without cholecystitis without obstruction (principal); K76.89 Other specified diseases of liver; R74.01 Elevation of levels of liver transaminase levels; Z95.5 Presence of coronary angioplasty implant and graft
CPT/HCPCS: 76705

== ENCOUNTER 2024-10-07 14:43 | Emergency (ER) | payer MEDICARE, BC ==
[2024-10-07 14:54] VITALS: TEMP 98.3
--- NOTE | 2024-10-07 15:28 | ED ---
General Adult HPI - General Chief complaint: Syncope Stated complaint: syncope Time Seen by Provider: 10/07/24 14:57 Source: patient, RN notes reviewed Mode of arrival: ambulatory Limitations: no limitations - History of Present Illness Initial comments: This is a 64-year-old male with history of AMI, acoustic neuroma and syncope since childhood presenting with presyncope today. Endorses syncopal event 1 week ago as well when he attempted to stand up from bed. Patient denies neck pain or ongoing headache, dizziness, vision changes, nausea/vomiting. States he had lightheadedness today upon standing from seated position on couch. Patient states he has been thoroughly worked up for possible cause of syncopal episodes with no definitive answer. Patient states he has an upcoming PCP appointment in 3 days. Onset/Timin -: days(s) Consistency: intermittent Improves with: none Worsens with: other (Position change) Associated Symptoms: syncope Treatments Prior to Arrival: none - Related Data Home Medications Medication Instructions Recorded Confirmed Escitalopram [Lexapro] 10 mg PO DAILY 03/06/22 03/06/22 diazePAM [Valium] 2 mg PO Q8H PRN 03/06/22 03/06/22 Previous Rx's Medication Instructions Recorded Aspirin 81 mg PO DAILY #30 tab 03/08/22 Atorvastatin [Lipitor] 80 mg PO HS #30 tab 03/08/22 Metoprolol Succinate (ER) [Toprol 25 mg PO DAILY #30 tab 03/08/22 XL] Prasugrel [Effient] 10 mg PO DAILY #30 tab 03/08/22 Meclizine [Antivert] 25 mg PO TID PRN #15 tab 10/07/24 Allergies Allergy/AdvReac Type Severity Reaction Status Date / Time No Known Allergies Allergy Verified 10/07/24 14:49 Review of Systems ROS Statement: Those systems with pertinent positive or pertinent negative responses have been documented in the HPI. ROS Other: All systems not noted in ROS Statement are negative. Past Medical History Past Medical History: Hyperlipidemia Additional Past Medical History / Comment(s): benign brain tumor Last Myocardial Infarction Date:: History of Any Multi-Drug Resistant Organisms: None Reported Past Surgical History: Heart Catheterization With Stent Additional Past Surgical History / Comment(s): brain tumor removal Date of Last Stent Placement:: Past Psychological History: Anxiety, Depression Smoking Status: Never smoker Past Alcohol Use History: Occasional Past Drug Use History: None Reported, Marijuana - Past Family History Brother(s) Family Medical History: Myocardial Infarction (OR) Father Family Medical History: Myocardial Infarction (OR) General Exam Limitations: no limitations General appearance: alert, in no apparent distress Head exam: Present: normocephalic, other (Contusion noted superior to left medial eyebrow without depression, hematoma or crepitus. Small, shallow laceration noted on bridge of right nose as well.) Eye exam: Present: normal appearance, PERRL, EOMI. Absent: scleral icterus, conjunctival injection, periorbital swelling ENT exam: Present: normal exam, mucous membranes moist Neck exam: Present: normal inspection. Absent: tenderness, meningismus, lym phadenopathy Respiratory exam: Present: normal lung sounds bilaterally. Absent: respiratory distress, wheezes, rales, rhonchi, stridor Cardiovascular Exam: Present: regular rate, normal rhythm, normal heart sounds. Absent: systolic murmur, diastolic murmur, rubs, gallop, clicks GI/Abdominal exam: Present: soft, normal bowel sounds. Absent: distended, tenderness, guarding, rebound, rigid Extremities exam: Present: normal inspection, full ROM, normal capillary refill. Absent: tenderness, pedal edema, joint swelling, calf tenderness Back exam: Present: normal inspection Neurological exam: Present: alert, oriented X3, CN II-XII intact, other (Cerebellar test: [id number], REM, [id number] all normal. [place]ion stroke negative.) Psychiatric exam: Present: normal affect, normal mood Skin exam: Present: warm, dry, intact, normal color. Absent: rash Course Vital Signs 10/07/24 10/07/24 10/07/24 14:49 17:25 17:26 Temperature 98.3 F Pulse Rate 58 L Pulse Rate [ 61 Left Supine Family Practice Doctor ] Pulse Rate [ 52 L Sitting] Pulse Rate [ 64 Standing] Respiratory 18 16 16 Rate Blood Pressure 123/72 Blood Pressure 117/77 110/83 [Left Arm] Blood Pressure 113/79 [Standing] O2 Sat by Pulse 98 Oximetry 10/07/24 18:40 Temperature Pulse Rate 50 L Pulse Rate [ Left Supine Family Practice Doctor ] Pulse Rate [ Sitting] Pulse Rate [ Standing] Respiratory 18 Rate Blood Pressure 125/76 Blood Pressure [Left Arm] Blood Pressure [Standing] O2 Sat by Pulse 98 Oximetry Medical Decision Making - Medical Decision Making Was pt. sent in by a medical professional or institution ([facility], [facility], urgent care, hospital, or skilled nursing...) When possible be specific @ -No Did you speak to anyone other than the patient for history (EMS, parent, family, police, friend...)? What history was obtained from this source @ -No Did you review nursing and triage notes (agree or disagree)? Why? @ -I reviewed and agree with nursing and triage notes Were old charts reviewed (outside hosp., previous admission, EMS record, old EKG, old radiological studies, urgent care reports/EKG's, skilled nursing records)? Report findings @ -No old charts were reviewed Differential Diagnosis (chest pain, altered mental status, abdominal pain women, abdominal pain men, vaginal bleeding, weakness, fever, dyspnea, syncope, headache, dizziness, GI bleed, back pain, seizure, CVA, palpatations, mental health, musculoskeletal)? @ -Differential Syncope: Valvular disease, hypertrophic cardiomyopathy, pulmonary embolism, tamponade, tachycardia, bradycardia, OR, hypovolemia, hemorrhage, dissection, anemia, intracranial hemorrhage, seizure, hypoglycemia, carbon monoxide poisoning, this is not meant to be an all-inclusive list. EKG interpreted by me (3pts min.). @ -Sinus bradycardia without ST changes or T wave inversion. Ventricular rate 58 bpm, ELMER 185 ms, QRS duration 90 ms, QTc 417 ms. X-rays interpreted by me (1pt min.). @ -CXR shows no acute cardiopulmonary process. CT interpreted by me (1pt min.). @ -None done U/S interpreted by me (1pt. min.). @ -None done What testing was considered but not performed or refused? (CT, X-rays, U/S, labs)? Why? @ - Patient declined CT head scan, stating he will follow-up with PCP on Thursday for further workup. What meds were considered but not given or refused? Why? @ -None Did you discuss the management of the patient with other professionals (professionals i.e. [facility], [facility], lab, RT, psych nurse, social work instructor, ice crusher, teacher, security public safety officer, case therapist)? Give summary @ -No Was smoking cessation discussed for >3mins.? @ -No Was critical care preformed (if so, how long)? @ -No Were there social determinants of health that impacted care today? How? (Homelessness, low income, unemployed, alcoholism, drug addiction, transportation, low edu. Level, literacy, decrease access to med. care, [facility], rehab)? @ -No Was there de-escalation of care discussed even if they declined (Discuss DNR or withdrawal of care, Hospice)? DNR status @ -No What co-morbidities impacted this encounter? (DM, HTN, Smoking, COPD, CAD, Cancer, CVA, ARF, Chemo, Hep., AIDS, mental health diagnosis, sleep apnea, morbid obesity)? @ -Acoustic neuroma, history of syncopal episodes Was patient admitted / discharged? Hospital course, mention meds given and route, prescriptions, significant lab abnormalities, going to OR and other pertinent info. @ -Lab work shows thrombocytopenia but otherwise unremarkable, including troponin and magnesium. CXR shows no acute cardiopulmonary process. Patient initially provided IV normal saline with additional normal saline and p.o. meclizine provided. Patient declined CT head scan, stating he will follow-up with PCP on Thursday for further workup. Meclizine sent to patient's pharmacy. Discussed patient with Dr. Rowe. Undiagnosed new problem with uncertain prognosis? @ -No Drug Therapy requiring intensive monitoring for toxicity (Heparin, Nitro, Ins ulin, Cardizem)? @ -No Were any procedures done? @ -No Diagnosis/symptom? @ -Syncopal episode, possible orthostasis Acute, or Chronic, or Acute on Chronic? @ -Acute Uncomplicated (without systemic symptoms) or Complicated (systemic symptoms)? @ -Complicated Side effects of treatment? @ -No Exacerbation, Progression, or Severe Exacerbation? @ -No Poses a threat to life or bodily function? How? (Chest pain, USA, OR, pneumonia, PE, COPD, DKA, ARF, appy, cholecystitis, CVA, Diverticulitis, Homicidal, Suicidal, threat to staff... and all critical care pts) @ -No - Lab Data Result diagrams: 10/07/24 15:54 10/07/24 15:54 Lab Results 10/07/24 10/07/24 10/07/24 Range/Units 15:54 15:54 15:54 WBC 5.4 (3.8-10.6) k/uL RBC 4.72 (4.30-5.90) m/uL Hgb 14.6 (13.0-17.5) gm/dL Hct 43.2 (39.0-53.0) % MCV 91.6 (80.0-100.0) fL MCH 30.9 (25.0-35.0) pg MCHC 33.8 (31.0-37.0) g/dL RDW 11.8 (11.5-15.5) % Plt Count 144 L (150-450) k/uL MPV 7.5 Neutrophils % 41 % Lymphocytes % 41 % Monocytes % 9 % Eosinophils % 5 % Basophils % 1 % Neutrophils # 2.3 (1.3-7.7) k/uL Lymphocytes # 2.2 (1.0-4.8) k/uL Monocytes # 0.5 (0-1.0) k/uL Eosinophils # 0.3 (0-0.7) k/uL Basophils # 0.1 (0-0.2) k/uL PT 11.1 (10.0-12.5) sec INR 1.0 (<1.2) APTT 22.4 (22.0-30.0) sec Sodium 139 (137-145) mmol/L Potassium 4.5 (3.5-5.1) mmol/L Chloride 101 (98-107) mmol/L Carbon Dioxide 33 H (22-30) mmol/L Anion Gap 5 mmol/L BUN 12 (9-20) mg/dL Creatinine 0.92 (0.66-1.25) mg/dL Est GFR (CKD-EPI)AfAm >90 (>60 ml/min/1.73 sqM) Est GFR (CKD-EPI)NonAf 88 (>60 ml/min/1.73 sqM) Glucose 94 (74-99) mg/dL Calcium 9.5 (8.4-10.2) mg/dL Magnesium 2.1 (1.6-2.3) mg/dL Total Bilirubin 0.8 (0.2-1.3) mg/dL AST 38 (17-59) U/L ALT 62 H (4-49) U/L Alkaline Phosphatase 78 (38-126) U/L Troponin I (0.000-0.034) ng/mL Total Protein 6.6 (6.3-8.2) g/dL Albumin 4.2 (3.5-5.0) g/dL 10/07/24 Range/Units 15:54 WBC (3.8-10.6) k/uL RBC (4.30-5.90) m/uL Hgb (13.0-17.5) gm/dL Hct (39.0-53.0) % MCV (80.0-100.0) fL MCH (25.0-35.0) pg MCHC (31.0-37.0) g/dL RDW (11.5-15.5) % Plt Count (150-450) k/uL MPV Neutrophils % % Lymphocytes % % Monocytes % % Eosinophils % % Basophils % % Neutrophils # (1.3-7.7) k/uL Lymphocytes # (1.0-4.8) k/uL Monocytes # (0-1.0) k/uL Eosinophils # (0-0.7) k/uL Basophils # (0-0.2) k/uL PT (10.0-12.5) sec INR (<1.2) APTT (22.0-30.0) sec Sodium (137-145) mmol/L Potassium (3.5-5.1) mmol/L Chloride (98-107) mmol/L Carbon Dioxide (22-30) mmol/L Anion Gap mmol/L BUN (9-20) mg/dL Creatinine (0.66-1.25) mg/dL Est GFR (CKD-EPI)AfAm (>60 ml/min/1.73 sqM) Est GFR (CKD-EPI)NonAf (>60 ml/min/1.73 sqM) Glucose (74-99) mg/dL Calcium (8.4-10.2) mg/dL Magnesium (1.6-2.3) mg/dL Total Bilirubin (0.2-1.3) mg/dL AST (17-59) U/L ALT (4-49) U/L Alkaline Phosphatase (38-126) U/L Troponin I <0.012 (0.000-0.034) ng/mL Total Protein (6.3-8.2) g/dL Albumin (3.5-5.0) g/dL Disposition Clinical Impression: Syncope, Dizziness, Orthostasis Disposition: HOME SELF-CARE Condition: Good Instructions (If sedation given, give patient instructions): Dizziness (ED) Additional Instructions: Follow-up with PCP appointment on Thursday Prescriptions: Meclizine [Antivert] 25 mg PO TID PRN #15 tab PRN Reason: Vertigo Is patient prescribed a controlled substance at d/c from ED?: No Referrals: Derick Remy DO [Primary Care Provider] - 1-2 days Time of Disposition: 18:17
--- NOTE | 2024-10-07 16:14 | XR ---
EXAMINATION TYPE: XR chest 2V DATE OF EXAM: 10/07/2024 CLINICAL HISTORY: Syncope TECHNIQUE: Frontal and lateral views of the chest are obtained. COMPARISON: Chest x-ray March 18, 2021 FINDINGS: Diminished inspiration on current study. There is no focal air space opacity, pleural effu rosy, or pneumothorax seen. The cardiac silhouette size remains within normal limits. The osseous structures are intact. IMPRESSION: No acute cardiopulmonary process. [facility], , 10/07/2024 4:12 PM
[2024-10-07 16:16] LABS: Basophils # (A) 0.1 k/uL (0-0.2); Basophils % (A) 1 %; Eosinophils # (A) 0.3 k/uL (0-0.7); Eosinophils % (A) 5 %; HCT 43.2 % (39.0-53.0); HGB 14.6 gm/dL (13.0-17.5); Lymphocytes # (A) 2.2 k/uL (1.0-4.8); Lymphocytes % (A) 41 %; MCH 30.9 pg (25.0-35.0); MCHC 33.8 g/dL (31.0-37.0); MCV 91.6 fL (80.0-100.0); Mean Platelet Volume 7.5; Monocytes # (A) 0.5 k/uL (0-1.0); Monocytes % (A) 9 %; Neutrophils # (A) 2.3 k/uL (1.3-7.7); Neutrophils % (A) 41 %; Platelet Count 144 k/uL (150-450); RBC 4.72 m/uL (4.30-5.90); RDW 11.8 % (11.5-15.5); WBC 5.4 k/uL (3.8-10.6)
[2024-10-07 16:31] LABS: Partial Thromboplastin Time 22.4 sec (22.0-30.0); Prothrombin Time 11.1 sec (10.0-12.5)
[2024-10-07 16:32] LABS: ALT 62 U/L (4-49); AST 38 U/L (17-59); African American GFR (CKD) >90 (>60 ml/min/1.73 sqM); Albumin 4.2 g/dL (3.5-5.0); Alkaline Phosphatase 78 U/L (38-126); Anion Gap 5 mmol/L; Blood Urea Nitrogen 12 mg/dL (9-20); Calcium 9.5 mg/dL (8.4-10.2); Carbon Dioxide 33 mmol/L (22-30); Chloride 101 mmol/L (98-107); Glucose 94 mg/dL (74-99); Magnesium 2.1 mg/dL (1.6-2.3); Non-African American GFR(CKD) 88 (>60 ml/min/1.73 sqM); Potassium 4.5 mmol/L (3.5-5.1); Sodium 139 mmol/L (137-145); Total Bilirubin 0.8 mg/dL (0.2-1.3); Total Protein 6.6 g/dL (6.3-8.2)
[2024-10-07] MEDS: SODIUM CHLORIDE 0.9% 1,000 ML IV STA ×2 (17:12→18:19)
[2024-10-07] MEDS: MECLIZINE 12.5 MG TAB PO STA (18:35)
[2024-10-07 18:41] VITALS: BP 125/76; PULSE 50; RESP 18
== END 2024-10-07 18:42 | disposition home or self-care (01) ==
LOC: EC 14:43
DX: R55 Syncope and collapse (principal); R42 Dizziness and giddiness; E78.5 Hyperlipidemia, unspecified; D33.3 Benign neoplasm of cranial nerves; Z86.73 Personal history of transient ischemic attack (TIA), and cerebral infarction without residual deficits
CPT/HCPCS: 36415; 71046; 80053; 83735; 84484; 85025; 85610; 85730; 93005; 96360; 99284